=== PATIENT | male | born 1950 | race Caucasian/White ===

== ENCOUNTER 2023-12-17 11:04 | Day surgery (SDC) | payer MEDICARE, OTHER, SELFPAY ==
--- NOTE | 2023-12-17 | PATH_ITS ---
[facility] Accession Number: [id number] No. of containers..02 Tissue . 01 Material submitted: . PART A: duodenum - DUODENUM PART B: stomach - STOMACH . 01 Diagnosis: Part A: DUODENUM: Duodenal mucosa with no diagnostic alterations. No active inflammation and no evidence of celiac disease. . Part B: STOMACH: Gastric mucosa with mild chronic inflammation. No Helicobacter organisms identified. No intestinal metaplasia, dysplasia, or malignancy identified. [facility] 12/22/2023 1309 Local . 01 Electronically signed: . Carlos Brandt MD, Pathologist NPI- [id number] . 01 Gross description: . A. Received in formalin with two patient identifiers and duodenum, are two tineo soft tissue fragments, both measuring 0.3 cm in greatest dimension, submitted in A1. . B. Received in formalin with two patient identifiers and stomach, are two tineo soft tissue fragments, both measuring 0.3 cm in greatest dimension, submitted in B1. ([id number]) /MRV 12/22/2023 1309 Local . 01 Microscopic: . Part B: STOMACH: An immunohistochemical stain was performed to evaluate for Helicobacter organisms and is negative. The control stains appropriately. * This test was developed and the performance characteristics were validated [facility]. It has not been cleared or approved by the Food and Drug Administration. . 01 Pathologist provided ICD-10: K29.50 . 01 CPT . 164849, 925942, [id number] Specimen Comment: A courtesy copy of this report has been sent to [phone] Performed at: [address] [facility], [place], [place] [id number] MD Carlos Brandt MD Phone: [phone]
[2023-12-17 11:45] VITALS: BP 170/74; PULSE 81; RESP 18; TEMP 36.1; O2SAT 98
[2023-12-17] MEDS: LACTATED RINGERS 1,000 ML 42 ML IV (11:47)
--- NOTE | 2023-12-17 12:19 | P.HP_ITS ---
History of Present Illness History of Present Illness Chief complaint: EGD Narrative: Cervical dysphagia PFSH Medical History (Updated 12/17/23 @ 10:52 by Tara Rollins, RN) History of kidney stones Surgical History (Updated 12/17/23 @ 10:52 by Tara Rollins, RN) Hx of tonsillectomy Hx of hernia repair Social History Smoking Status: Current every day smoker alcohol intake: never Meds Home Medications and Allergies Home Medications Medication Instructions Recorded Confirmed Type No Known Home Medications 12/17/23 12/17/23 History Allergies Allergy/AdvReac Type Severity Reaction Status Date / Time No Known Drug Allergies Allergy Verified 12/17/23 10:51 Exam Vital Signs (past 8 hours): - 12/17/23 11:45 Temperature 96.9 F L Pulse Rate 81 Respiratory Rate 18 Blood Pressure 170/74 H Pulse Oximetry 98 Oxygen Delivery Method Room Air Oxygen Delivery Method Room Air Narrative Exam Narrative: Oropharynx free of lesion Assessment & Plan Time-Based Coding :: [TOTAL MINUTES] spent with patient and on the chart (including review of chart, obtaining history, exam, reviewing outside data, placing orders, documenting ex am and treatment plan, and counseling patient) on [DATE].
--- NOTE | 2023-12-17 12:20 | P.OP.EGD_ITS ---
Operative Date/Time/Diagnoses Pre-op diagnosis: See indication and findings Procedure & Clinicians Study performed: EGD Indications: Dysphagia, cervical Surgeon: Dwight Wong Procedure Notes Procedure in detail: After informed consent was obtained the patient was placed in left lateral decubitus position. The video upper scope placed into the oropharynx and with the patient's help swallowed into the esophagus the esophagus stomach duodenum were carefully examined. On withdrawal, retroflexed view the GE junction was performed. The scope was removed. The patient tolerated procedure well. Blood loss none Complications none Sedation mac Findings 1. No evidence of mechanical lesion such as stricture or esophageal rings th roughout the esophagus. 2. Extensive hematin flecks throughout the stomach with patchy erythema and at least 2 erosions seen in the stomach. Biopsies taken to rule out Helicobacter 3. Patchy erythema in the duodenal bulb and sweep with no further erosions seen. Biopsies taken Will be in touch regarding his biopsies. In the meantime he should try famotidine 20 mg [id number] daily.
[2023-12-17 12:38] VITALS: BP 105/67; PULSE 87; RESP 20; TEMP 36.6; O2SAT 95
[2023-12-17 12:45] VITALS: BP 132/91; PULSE 97; RESP 16; O2SAT 95
[2023-12-17 12:51] VITALS: BP 131/75; PULSE 85; RESP 13; TEMP 36.4; O2SAT 98
[2023-12-17 12:53] VITALS: BP 134/74; PULSE 85; RESP 15; TEMP 36.2; O2SAT 96
== END 2023-12-17 13:02 | disposition home or self-care (01) ==
PROVIDERS: PCP Nurse Practitioner Family; Referring Provider Internal Medicine Gastroenterology; Visit Provider Internal Medicine Gastroenterology
PROC: 0DJ08ZZ Inspection of Upper Intestinal Tract, Via Natural or Artificial Opening Endoscopic (ICD-10-PCS; CPT 43235; principal; 2023-12-17 12:30)
DX: R13.10 Dysphagia, unspecified (principal); K29.50 Unspecified chronic gastritis without bleeding
CPT/HCPCS: 43239; J2704